=== PATIENT | male | born 1955 | race Hispanic/Latino ===

== ENCOUNTER 2022-04-13 10:47 | Emergency (ER) | payer OTHER ==
[2022-04-13] MEDS ORDERED: NA CHLORIDE 0.9% 1,000 ML ONE (11:56)
[2022-04-13] MEDS ORDERED: PANTOPRAZOLE 40 MG INJ ONE (11:56)
[2022-04-13 12:00] LABS: Absolute Lymphocytes (CBC) 1.9 K/uL (0.7-4.9); Hematocrit 35.3 % (39.6-49.0); Lymphocytes % 15.4 % (15.3-44.8); MCV 81.4 fL (80-100); MPV 10.4 fL (7.6-11.3); RBC Red Blood Cell Count 4.33 M/uL (4.33-5.43)
--- NOTE | 2022-04-13 12:46 | RAD REPORT ---
EXAM DESCRIPTION: CT - Abdomen Pelvis W Contrast - 04/13/2022 12:36 pm CLINICAL HISTORY: r/o GI bleed COMPARISON: No comparisons TECHNIQUE: Biphasic, helical CT imaging of the abdomen and pelvis was performed following 100 ml non -ionic IV contrast. Oral contrast: No. All CT scans are performed using dose optimization technique as appropriate and may include automated exposure control or mA/KV adjustment according to patient size. FINDINGS: No suspicious findings in the lung bases. The liver, spleen, and pancreas show no suspicious findings. Gallbladder and biliary tree are also wi thout suspicious finding. Symmetric renal function is seen with no hydronephrosis or suspicious renal mass. No pyelonephritis o r acute parenchymal process. No bladder abnormalities. No adrenal abnormalities. No significant prost ate gland finding. No gastric wall thickening, gastric wall mass or edema. No small bowel abnormality seen. Patient has an diverticulosis, more prominent in the left side sigmoid region. Colon mass is not seen. There is h yperdense material in the hepatic flexure of the colon presumed to be ingested material. This could p otentially be old contrast within the diverticulum. No free air, free fluid or inflammatory strandin g. No hernia, mass or bulky lymphadenopathy. No suspicious bony findings. 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 IMPRESSION: Walker diverticulosis without diverticulitis or mass identifiable. No acute GI process seen . Remainder of the CT abdomen study without acute finding.
[2022-04-13 12:48] LABS: Protime INR 1.16
[2022-04-13 12:54] LABS: Albumin 2.9 g/dL (3.4-5.0); Bilirubin Total 0.3 mg/dL (0.2-1.0); Potassium 4.5 mmol/L (3.5-5.1); Protein, Total 6.5 g/dL (6.4-8.2)
--- NOTE | 2022-04-13 13:12 | EDPHYS ---
Physician Documentation [facility] Name: Joel Logan Age: 66 yrs Sex: Male : 1955 Arrival Date: 04/13/2022 Time: 10:51 Bed 13 Private MD: ED Physician Dieudonne García HPI: 04/13 10:52 This 66 yrs old Male presents to ER via Ambulatory with complaints of Rectal jh7 Bleeding. 10:52 The patient presents to the emergency department with bleeding from the rectum/anus, jh7 that is mild. Onset: The symptoms/episode began/occurred this morning. Context: the patient has no known special context relating to the rectal area complaint(s). Associate signs and symptoms: Pertinent positives: diarrhea, Pertinent negatives: abdominal pain, constipation, fever, vomiting. 66-year-old male presents with complaints of blood in the stool. He reports that starting at 530 this morning he had 4 bowel movements with bright red blood present. States that the last 2 bowel movements had some dark red blood in it. History of diverticulitis. Denies history of hospital admission. Reports that stools were liquid. Denies any pain at this time.. Historical: - Allergies: 10:52 PENICILLINS; ll1 - Immunization history:: Adult Immunizations up to date. - Social history:: Smoking status: Patient denies any tobacco usage or history of. ROS: 10:52 Constitutional: Negative for fever, chills, and weight loss, Eyes: Negative for injury, jh7 pain, redness, and discharge, Cardiovascular: Negative for chest pain, palpitations, and edema, Respiratory: Negative for shortness of breath, cough, wheezing, and pleuritic chest pain, Back: Negative for injury and pain, MS/Extremity: Negative for injury and deformity, Skin: Negative for injury, rash, and discoloration, Neuro: Negative for headache, weakness, numbness, tingling, and seizure. 10:52 Abdomen/GI: Positive for diarrhea, rectal bleeding, Negative for abdominal pain, nausea and vomiting, constipation. 10:52 All other systems are negative. Exam: 10:52 Constitutional: This is a well developed, well nourished patient who is awake, alert, jh7 and in no acute distress. Head/Face: Normocephalic, atraumatic. Eyes: Pupils equal round and reactive to light, extra-ocular motions intact. Lids and lashes normal. Conjunctiva and sclera are non-icteric and not injected. Cornea within normal limits. Periorbital areas with no swelling, redness, or edema. Neck: Trachea midline, no thyromegaly or masses palpated, and no cervical lymphadenopathy. Supple, full range of motion without nuchal rigidity, or vertebral point tenderness. No Meningismus. Cardiovascular: Regular rate and rhythm with a normal S1 and S2. No gallops, murmurs, or rubs. Normal PMI, no JVD. No pulse deficits. Respiratory: Lungs have equal breath sounds bilaterally, clear to auscultation and percussion. No rales, rhonchi or wheezes noted. No increased work of breathing, no retractions or nasal flaring. Back: No spinal tenderness. No costovertebral tenderness. Full range of motion. Skin: Warm, dry with normal turgor. Normal color with no rashes, no lesions, and no evidence of cellulitis. MS/ Extremity: Pulses equal, no cyanosis. Neurovascular intact. Full, normal range of motion. Neuro: Awake and alert, GCS 15, oriented to person, place, time, and situation. Motor strength 5/5 in all extremities. Sensory grossly intact. Normal gait. 10:52 Abdomen/GI: Inspection: abdomen appears normal, Bowel sounds: normal, Palpation: abdomen is soft and non-tender, Rectal exam: is unremarkable, Stool: no blood or stool noted on rectal exam. Vital Signs: 10:53 BP 119 / 67; Pulse 110; Resp 17; Temp 98.8; Pulse Ox 100% ; Weight 97.98 kg; Height 5 ll1 ft. 8 in. (172.72 cm); Pain 5/10; 13:03 BP 126 / 79; Pulse 84; Resp 16; Pulse Ox 99% ; bp 10:53 Body Mass Index 32.84 (97.98 kg, 172.72 cm) ll1 MDM: 10:56 Patient medically screened. [facility] 13:10 Differential diagnosis: hemorrhoids, GI bleed, diverticulitis, colitis, gastric ulcer. [facility] Data reviewed: vital signs, nurses notes, lab test result(s), radiologic studies, CT scan. Consideration of Admission/Observation Escalation of care including admission/observation considered. Discussed case with the ED physician Dr. García that we can safely discharge this patient.. I considered the following discharge prescriptions or medication management in the emergency department Medications were administered in the Emergency Department. See MAR. Test considered but Not performed: Ultrasound . Care significantly affected by the following chronic conditions: Diverticulosis. Counseling: I had a detailed discussion with the patient and/or guardian regarding: the historical points, exam findings, and any diagnostic results supporting the discharge/admit diagnosis, to return to the emergency department if symptoms worsen or persist or if there are any questions or concerns that arise at home. Response to treatment: the patient's symptoms have resolved after treatment. Special discussion: Reviewed all labs and CT scan with the patient. Informed him that there was no melanotic stool seen on rectal exam. The patient denied any symptoms during this discussion and stated that he initially felt lightheaded during the bowel movements, but his symptoms resolved shortly after arriving to the ER. Informed him that we would be willing to admit him for observation, but that we do not have GI here today and that he would need to be transferred. The patient stated that he felt fine and would rather be discharged with strict ER return precautions.. 04/13 11:03 Order name: CBC with Diff; Complete Time: 12:27 [facility] 04/13 11:03 Order name: CMP; Complete Time: 13:02 [facility] 04/13 11:03 Order name: Lipase; Complete Time: 13:02 [facility] 04/13 11:03 Order name: PT-INR; Complete Time: 12:49 [facility] 04/13 11:03 Order name: Type And Screen; Complete Time: 13:40 [facility] 04/13 11:03 Order name: CT Abd/Pelvis - IV Contrast Only; Complete Time: 12:49 [facility] 04/13 11:03 Order name: IV Saline Lock; Complete Time: 11:58 [facility] 04/13 11:03 Order name: Labs collected and sent; Complete Time: 11:58 [facility] 04/13 11:03 Order name: Misc. Order: have patient in a gown for rectal exam; Complete Time: 11:14 [facility] 04/13 11:56 Order name: Labs - recollect needed: recollect hemolyzed blood / andreas printing eb labels; Complete Time: 12:36 Administered Medications: 11:30 Drug: NS 0.9% 1000 ml Route: IV; Rate: 1 bolus; Site: right forearm; bp 13:26 Follow up: IV Status: Completed infusion; IV Intake: 1000ml bp 11:30 Drug: ProTONIX (pantoprazole) 40 mg Route: IVP; Site: right forearm; bp 13:27 Follow up: Response: No adverse reaction bp Disposition: 16:25 Co-signature as Attending Physician, Dieudonne García MD I agree with the assessment and kdr plan of care. Disposition Summary: 04/13/22 13:12 Discharge Ordered Location: Home [facility] Problem: new [facility] Symptoms: are resolved [facility] Condition: Stable [facility] Diagnosis - Diarrhea, unspecified [facility] Followup: [facility] - With: Private Physician - When: 2 - 3 days - Reason: Recheck today's complaints Discharge Instructions: - Discharge Summary Sheet [facility] - Diarrhea, Adult [facility] - Diverticulosis [facility] Forms: - Medication Reconciliation Form [facility] - Thank You Letter [facility] Signatures: Dispatcher [employer] Dieudonne Calabrese MD MD kdr Peltier, Brian RN RN Nehal Calloway Lynsay RN RN ll1 Heaven Payne FNP FNP [facility]
--- NOTE | 2022-04-13 13:12 | ER ---
Nurse's Notes [facility] Name: Joel Logan Age: 66 yrs Sex: Male : 1955 Arrival Date: 04/13/2022 Time: 10:51 Bed 13 Private MD: Diagnosis: Diarrhea, unspecified Presentation: 04/13 10:53 Chief complaint: Patient states: Rectal bleeding for 1 day, started bright red now dark ll1 red. Pain when having BM's. + gassy. Feels nervous, sweaty, vision changed. States this happens to him about yearly. Coronavirus screen: Vaccine status: Patient reports receiving the 2nd dose of the covid vaccine. Client denies travel out of the [place] in the last 14 days. At this time, the client does not indicate any symptoms associated with coronavirus-19. Ebola Screen: Patient denies travel to an Ebola-affected area in the 21 days before illness onset. Initial Sepsis Screen: Does the patient meet any 2 criteria? HR > 90 bpm. No. Patient's initial sepsis screen is negative. Does the patient have a suspected source of infection? Yes: Acute abdominal pain. Risk Assessment: Do you want to hurt yourself or someone else? Patient reports no desire to harm self or others. Onset of symptoms was April 13, 2022. 10:53 Method Of Arrival: Ambulatory ll1 10:53 Acuity: NASEEM 2 ll1 Triage Assessment: 11:00 General: Appears distressed, uncomfortable, Behavior is cooperative, appropriate for bp age, anxious. Pain: Denies pain. EENT: No deficits noted. Neuro: No deficits noted. Cardiovascular: Rhythm is sinus rhythm. Respiratory: No deficits noted. GI: Reports rectal bleeding. : No signs and/or symptoms were reported regarding the genitourinary system. Derm: No deficits noted. Musculoskeletal: No deficits noted. Historical: - Allergies: 10:52 PENICILLINS; ll1 - Immunization history:: Adult Immunizations up to date. - Social history:: Smoking status: Patient denies any tobacco usage or history of. Screenin:00 [facility] ED Fall Risk Assessment (Adult) History of falling in the last 3 months, bp including since admission No falls in past 3 months (0 pts). Abuse screen: Denies threats or abuse. Denies injuries from another. Nutritional screening: No deficits noted. Tuberculosis screening: No symptoms or risk factors identified. Assessment: 11:00 General: SEE TRIAGE NOTE. bp 13:00 Reassessment: Patient and/or family updated on plan of care and expected duration. Pain bp level reassessed. Patient is alert, oriented x 3, equal unlabored respirations, skin warm/dry/pink. 13:25 Reassessment: DC HOME AMBULATORY. bp Vital Signs: 10:53 BP 119 / 67; Pulse 110; Resp 17; Temp 98.8; Pulse Ox 100% ; Weight 97.98 kg; Height 5 ll1 ft. 8 in. (172.72 cm); Pain 5/10; 13:03 BP 126 / 79; Pulse 84; Resp 16; Pulse Ox 99% ; bp 10:53 Body Mass Index 32.84 (97.98 kg, 172.72 cm) ll1 ED Course: 10:51 Patient arrived in ED. am2 10:53 Arm band placed on. 1 10:56 Heaven [facility] 7 10:56 Dieudonne García MD is Attending Physician. 7 10:59 Triage completed. ll1 11:08 Pj Kaur, RN is Primary Nurse. bp 11:30 Inserted saline lock: 20 gauge in right forearm, using aseptic technique. Blood bp collected. 12:38 CT Abd/Pelvis - IV Contrast Only In Process Unspecified. EDMS 13:00 Patient has correct armband on for positive identification. Placed in gown. Bed in low bp position. Call light in reach. Side rails up X2. 13:25 No provider procedures requiring assistance completed. IV discontinued, intact, bp bleeding controlled, No redness/swelling at site. Pressure dressing applied. Administered Medications: 11:30 Drug: NS 0.9% 1000 ml Route: IV; Rate: 1 bolus; Site: right forearm; bp 13:26 Follow up: IV Status: Completed infusion; IV Intake: 1000ml bp 11:30 Drug: ProTONIX (pantoprazole) 40 mg Route: IVP; Site: right forearm; bp 13:27 Follow up: Response: No adverse reaction bp Medication: 13:00 VIS not applicable for this client. bp Intake: 13:26 IV: 1000ml; Total: 1000ml. bp Outcome: 13:12 Discharge ordered by . jh7 13:25 Discharged to home ambulatory. bp 13:25 Condition: stable 13:25 Discharge instructions given to patient, Instructed on discharge instructions, follow up and referral plans. Demonstrated understanding of instructions, follow-up care. 13:32 Patient left the ED. bp Signatures: Dispatcher [employer] EDMS Ofe Lux am2 Pj Kaur RN RN bp Eloy Cornejo RN RN 1 Heaven Payne FNP PATIENT SITTER jh7 Corrections: (The following items were deleted from the chart) 13:06 13:03 Pulse 84bpm; Resp 16bpm; Pulse Ox 99%; bp bp
[2022-04-13 14:13] VITALS: TEMP 98.8
[2022-04-13 14:14] VITALS: BP 126/79; O2SAT 99
== END 2022-04-13 13:32 | disposition home or self-care (01) ==
LOC: ER 10:47
DX: R19.7 Diarrhea, unspecified (principal); Z88.0 Allergy status to penicillin
CPT/HCPCS: 85025; 36415; 86900; 86850; 85610; 82565; 86901; 83690; 80053; 74177; Q9967; C9113; J7030; 96361; 96374; 99284